=== PATIENT | male | born 1980 | race Caucasian/White ===

== ENCOUNTER 2016-05-30 06:03 | Day surgery (SDC) | payer BC ==
[~2016-05-30] VITALS: Ht 180.3 cm; Wt 127.0 kg
[~2016-05-30 06:03] MED LIST: AMOXICILLIN500 M1 PO
[2016-05-30 07:13] LABS: BASOPHILS 0.7 % (0.0-2.0); EOSINOPHILS 4.5 % (0-7); HEMATOCRIT 42.6 % (42.0-54.0); HEMOGLOBIN 14.5 g/dL (13.5-17.5); IMMATURE GRANULOCYTES 0.5 % (0-5); LYMPHOCYTES 32.7 % (15-50); MCH 32.7 pg (26.0-34.0); MCV 95.9 fL (80.0-100.0); MEAN PLATELET VOLUME 10.1 fL (7.4-10.4); MONOCYTES 9.3 % (2-11); NEUTROPHILS 52.3 % (40-80); PLATELET COUNT 211 10x3/uL (130-400); RBC 4.44 10x6/uL (4.20-6.10); RDW 12.8 % (11.5-14.5); WBC 7.5 10x3/uL (4.8-10.8)
[2016-05-30 07:31] LABS: CALC OSMOLALITY 284 mosm/kg (275-300); CALCIUM 8.8 mg/dL (8.5-10.1); CARBON DIOXIDE 26.7 mmol/L (21.0-32.0); CHLORIDE - SERUM 108 mmol/L (98-107); CREATININE - SERUM 0.9 mg/dL (0.6-1.3); GLUCOSE 99 mg/dL (74-106); POTASSIUM - SERUM 3.8 mmol/L (3.5-5.1); SODIUM 142 mmol/L (136-145); UREA NITROGEN 17 mg/dL (7-18); eGFR NON AFRICAN AMERICAN > 90 mL/min (90-120)
[2016-05-30 07:44] VITALS: BP 145/87; Ht 180.3 cm; Wt 127.0 kg
[2016-05-30] MEDS ORDERED: HYDROCODONE-APA1 TAB PO (10:35)
--- NOTE | 2016-05-30 14:47 | NUR ---
1415--IV DC'D, PT UP TO DRESS AT THIS TIME. ISSA MERRILL 1430--DISCHARGE INSTRUCTIONS GIVEN, PT VERBALIZES UNDERSTANDING. PT OFF UNIT VIA WC. ISSA MERRILL
--- NOTE | 2016-06-20 13:21 | OP ---
PATIENT NAME: BEAU HERNANDEZ MEDICAL RECORD: [id number] :76 LOCATION:[facility] ADMISSION DATE: SURGEON: EFRAIN PINK MD DATE OF OPERATION: 05/30/2016 PREOPERATIVE DIAGNOSES: 1. Ventral incisional hernia. 2. Tobacco dependence syndrome. 3. Morbid obesity. POSTOPERATIVE DIAGNOSES: 1. Ventral incisional hernia. 2. Tobacco dependence syndrome. 3. Morbid obesity. PROCEDURE: Ventral hernia repair with 6.4 cm Proceed mesh. SURGEON: Efrain Pink MD REPORT OF PROCEDURE: The patient's abdomen was prepped and draped in sterile fashion. A midline incision was made in the upper abdomen. Electrocautery was used to dissect through subcutaneous tissues and we encountered a hernia sac. The hernia sac was transected down at its base using electrocautery. The hernia sac had incarcerated omentum present within it. I could place my finger into the hernia defect and as I felt around there are another couple small defects with the largest one being just above this largest defect. I remove this small fascial bridge between these 2 and this made it more easily accessible for reduction of the hernia contents. Once the hernia contents were completely reduced, I could see that the hernia defect was about 2.5-3 cm in greatest diameter. The fascia was cleared off above and below. At this point, we placed a 6.4 cm Proceed mesh. This was sutured down on all 4 sides using interrupted 0 Prolenes. The fascia was closed in the midline using running #1 loop PDS times 2. There was good approximation of the tissue. Any bleeding was then treated with electrocautery. We reapproximated the subcutaneous tissues using interrupted 3-0 Vicryls and the skin was closed with running subcutaneous 5-0 Monocryl. A 10 mL of 0.25% Marcaine with epinephrine was infused into the surrounding tissues and the wound was dressed appropriately. COMPLICATIONS: None. CONDITION: Stable. ANESTHESIA: General endotracheal and local. BLOOD LOSS: 30 mL. TRANSINT:[id number] Voice Confirmation ID: [id number] DOCUMENT ID: [id number] OPERATIVE REPORT [id number] BEAU HERNANDEZ EFRAIN PINK MD at 1321 CC: CATE DANIELS MD [id number] DICTATION DATE: 05/30/16 1036 POUNCING MACHINE OPERATOR: 05/30/16 1727 [facility] 05/30/16 [place] [id number] [place] [id number]
== END 2016-05-30 14:49 | disposition home or self-care (01) ==
LOC: D.OPS 06:03 → D.PAN 12:45 → D.OPS 12:45
PROVIDERS: Surgery
DX: K43.0 Incisional hernia with obstruction, without gangrene (principal); F17.200 Nicotine dependence, unspecified, uncomplicated; E66.01 Morbid (severe) obesity due to excess calories; Z68.39 Body mass index [BMI] 39.0-39.9, adult

== ENCOUNTER → 2019-02-01 13:57 | Outpatient (CLI) | payer OTHER ==
[2016-05-30 07:44] VITALS: BMI 39.1
[~2019-02-01 13:57] MED LIST changes: +ALEVE220 MG PO; +HYDROCHLOROTH12.5 M1 PO; +HYDROCODON-ACE1 EAC2 PO; +HYDROCODONE-APA1 TAB PO; +KLONOPIN1 MG PO; +LISINOPRIL20 MG PO; +MOBIC7.5 MG PO; +WELLBUTRIN XL150 M1 PO
== END | disposition home or self-care (01) ==
LOC: D.MRI 13:57
PROVIDERS: ATTEND Orthopaedic Surgery
DX: M25.551 Pain in right hip (principal)

== ENCOUNTER → 2019-02-03 19:30 | Outpatient (CLI) | payer OTHER ==
[2016-05-30 07:44] VITALS: BMI 39.1
== END | disposition home or self-care (01) ==
LOC: D.LABREF 19:30
PROVIDERS: ATTEND Orthopaedic Surgery
DX: M87.88 Other osteonecrosis, other site (principal)

== ENCOUNTER 2019-02-10 12:07 | Inpatient (IN) | payer OTHER ==
[~2019-02-10] VITALS: Ht 180.3 cm; Wt 122.7 kg
[~2019-02-10 12:07] MED LIST changes: -ALEVE220 MG PO; -HYDROCHLOROTH12.5 M1 PO; -HYDROCODON-ACE1 EAC2 PO; -KLONOPIN1 MG PO; -LISINOPRIL20 MG PO; -MOBIC7.5 MG PO; -WELLBUTRIN XL150 M1 PO
[2019-02-22] MEDS ORDERED: LISINOPRIL20 MG PO (16:03)
[2019-02-22] MEDS ORDERED: HYDROCHLOROTH12.5 M1 PO (16:03)
[2019-02-22] MEDS ORDERED: MOBIC7.5 MG PO (16:04)
[2019-02-22] MEDS ORDERED: KLONOPIN1 MG PO (16:04)
[2019-02-22] MEDS ORDERED: ALEVE220 MG PO (16:04)
[2019-02-22] MEDS ORDERED: WELLBUTRIN XL150 M1 PO (16:04)
[2019-02-23 12:45] LABS: ANION GAP 13.4 mmol/L (8-16); CALCIUM 9.5 mg/dL (8.5-10.1); CARBON DIOXIDE 27.5 mmol/L (21.0-32.0); CREATININE - SERUM 1.2 mg/dL (0.6-1.3); POTASSIUM - SERUM 4.9 mmol/L (3.5-5.1)
[2019-02-23 12:46] LABS: APPEARANCE CLEAR (CLEAR); BILIRUBIN NEGATIVE (NEGATIVE); COLOR YELLOW (YELLOW); GLUCOSE NEGATIVE (NEGATIVE); KETONE NEGATIVE (NEGATIVE); NITRITE NEGATIVE (NEGATIVE); PROTEIN NEGATIVE (NEGATIVE); UROBILINOGEN NORMAL (NORMAL)
[2019-02-23 12:47] LABS: APTT 30.7 SECONDS (22.8-39.4); INR 1.09 (0.85-1.17); PROTIME 13.6 SECONDS (11.6-15.0)
[2019-02-23 13:00] LABS: HEMATOCRIT 40.3 % (42.0-54.0); HEMOGLOBIN 14.1 g/dL (13.5-17.5); LYMPHOCYTES 34.5 % (15-50); MCH 33.2 pg (26.0-34.0); MCV 94.8 fL (80.0-100.0); MEAN PLATELET VOLUME 9.9 fL (7.4-10.4); NEUTROPHILS 53.7 % (40-80); PLATELET COUNT 239 10x3/uL (130-400); RBC 4.25 10x6/uL (4.20-6.10); RDW 12.2 % (11.5-14.5); WBC 8.6 10x3/uL (4.8-10.8)
[2019-02-28] VITALS (12 sets, daily range): BP systolic 101–155; BP diastolic 40–89; BMI 37.7
[2019-02-28] MEDS ORDERED: HYDROCODON-ACE1 EAC2 PO (07:08)
--- NOTE | 2019-02-28 09:49 | NUR ---
PT PLACED ON LEFT SIFE WITH RIGHT HIP UP IN LATERAL POSITION ON FAN BAG. RIGHT LEG CLEANSED WITH HIBICLEANSE AND ALCOHOL FROM ILIAC CREST TO TOES CIRCUMFERENTIALLY AND DRIED WITH STERILE TOWEL. RIGHT LEG PREPPED WITH CHOLRAPREP X3 FROM ILIAC CREST TO TOES CIRCUMFERENTIALLY. TRAFFIC KEPT TO A MINIMUM PLASMA BLADE SET TO 6/8 GROUNDING PAD ON RIGHT FLANK LOT # [id number] 05-18-2020
--- NOTE | 2019-02-28 19:20 | NUR ---
ASSESSMENT COMPLETED EARLY AM.HE HAS BEEN WITHOUT DISTRESS.HOPES TO DC HOME IN AM.HE IS WITHOUT CHANGE.CONT PLAN OF CARE
--- NOTE | 2019-02-28 19:24 | NUR ---
ARRIVED ON UNIT TODAY POST OP RIGHT HIP. PAIN CONTROLLED WITH PO MEDS.HE IS WITHOUT DISTRESS.DRESSING TO RIGHT HIP CDI WITH ICE IN PLACE.REMAINS WITHOUT CHANGE.CONT PLAN OF CARE
--- NOTE | 2019-02-28 19:30 | NUR ---
PT IS SITTING UP IN BED VISITING WITH HIS MOM. ICE PACK PLACED TO RIGHT HIP. RIGHT HIP DRESSING IS C/D/I. PT REPORTS HIS PAIN 2/10 TO RIGHT HIP, TOLERABLE. DENIES NEEDS. CALL LIGHT WITHIN REACH. BED IN LOW POSITIONS.
[2019-03-01] VITALS: BP 103/56
[2019-03-01 04:00] VITALS: BP 123/57
[2019-03-01 06:27] LABS: HEMATOCRIT 35.6 % (42.0-54.0); HEMOGLOBIN 11.8 g/dL (13.5-17.5); MCH 31.8 pg (26.0-34.0); MCHC 33.1 g/dL (31.0-37.0); RBC 3.71 10x6/uL (4.20-6.10); RDW 12.2 % (11.5-14.5); WBC 10.4 10x3/uL (4.8-10.8)
[2019-03-01 09:52] VITALS: BP 110/50
--- NOTE | 2019-03-01 10:03 | OP ---
PATIENT NAME: BEAU HERNANDEZ MEDICAL RECORD: [id number] :76 LOCATION:[id number] ADMISSION DATE:02/28/19 SURGEON: SENIA CASTELAN MD DATE OF OPERATION: 02/28/2019 PREOPERATIVE DIAGNOSIS: Avascular necrosis of the right hip. POSTOPERATIVE DIAGNOSIS: Avascular necrosis of the right hip. PROCEDURE: Right total hip arthroplasty. SURGEON: Senia Castelan MD BUDGET EXAMINER: Osbaldo Araya. ANESTHESIA: General. INTRAOPERATIVE COMPLICATIONS: None. SUMMARY OF PATHOLOGIC FINDINGS: The patient had complete collapse of the right femoral head with complete deformation as well as a loose chondral fragments. IMPLANTS USED: Trident 2 cup with an Accolade II stem on a size 56 acetabular shell, size 36 Biolox ceramic head plus 0, size 6 Accolade II TMZF coated stem and a size 36 polyethylene insert, again that is a 56 acetabular component. ESTIMATED BLOOD LOSS: 200 cc. OPERATION IN DETAIL: After obtaining the appropriate preoperative orthopedic surgery surgery consent as well as anesthetic consultation, evaluation and clearance, the patient was brought to the operating room and placed on the operating table in supine position. After general laryngeal mask airway was administered, the patient was placed in left lateral decubitus position. All pressure points were well padded to include down leg peroneal pad as well as axillary roll. The patient was held firmly to the operating table using the vacuum pack suction system. Right lower extremity and hip were then prepped and draped in routine sterile fashion. Curvilinear incision was made over the greater trochanter, taken down along the IT band, which was split in line with fibers of the IT band to reveal gluteus medius minimus attachment. These were reflected anteriorly. The hip capsule was identified and split in a T-type fashion. Mild capsulotomy was performed. The hip was dislocated. Femoral neck cut was made using the femoral neck cutting guide. Having completed this, attention was turned to the acetabulum. Circumferential labrectomy was then followed by reaming to 55 for a size 56 cup that was tamped into place with excellent capture. Polyethylene was then put into place. Attention was turned to the proximal femur. Serial and sequential reaming and broaching were done for a size 6 TMZF stem. The TMZF stem was malleted into place with good fit and fill. Trial was undertaken. It was felt that the +0 standard was the most appropriate. This was tamped into place on the Mckenna taper. The hip was reduced. Intraoperative radiographs were taken and showed good position and placement of all components. Wound was then copiously irrigated and it was filled with a gram of vancomycin and a gram of tobramycin. Gluteus medius minimus was then reattached to the greater trochanter transosseous fashion using #5 Ethibond. The IT band was then closed with #2 Ethibond, #1 Vicryl, 2-0 Vicryl and skin rhys for final closure done by Osbaldo Araya. Having completed OPERATIVE REPORT [id number] BEAU HERNANDEZ this, sterile dressings were applied. The patient was awakened and taken to recovery room in stable condition. All final needle and sponge counts were correct. TRANSINT:[id number] Voice Confirmation ID: [id number] DOCUMENT ID: [id number] FLIP MCMAHON, SENIA MARTIN at 1003 CC: [id number] DICTATION DATE: 03/01/19901 INFRASTRUCTURE MANAGER: 03/01/19 0958 ADM IN [place] [id number] [place] [id number]
[2019-03-01 13:20] VITALS: Ht 180.3 cm; Wt 122.7 kg
[2019-03-01 16:45] VITALS: BP 129/66
--- NOTE | 2019-03-01 18:45 | NUR ---
PATIENT ASSISTED TO BR. NO PROBLEMS AT THIS TIME. WAS UPSET BECAUSE HE STATED THE PT FOR TODAY DIDNT DO WHAT HE WAS SUPPOSE TO DO WITH HIM TODAY. EXPLAINED TO PATIENT I WOULD NOTIFY NM ABOUT PT. VERBALIZED UNDERSTANDING. NO QUESTIONS AT THIS TIME. IV INTACT. DRESSING INTACT. BSCDS ON. CALL LIGHT WITHIN REACH.
[2019-03-01 20:00] VITALS: BP 130/67
[2019-03-02 04:00] VITALS: BP 147/78
[2019-03-02 04:44] LABS: HEMATOCRIT 34.8 % (42.0-54.0); HEMOGLOBIN 11.4 g/dL (13.5-17.5); MCH 31.5 pg (26.0-34.0); MCHC 32.8 g/dL (31.0-37.0); MCV 96.1 fL (80.0-100.0); MEAN PLATELET VOLUME 10.4 fL (7.4-10.4); RBC 3.62 10x6/uL (4.20-6.10); RDW 12.2 % (11.5-14.5); WBC 11.3 10x3/uL (4.8-10.8)
--- NOTE | 2019-03-02 08:00 | NUR ---
PATIENT IN BED WITH IV INTACT. NO COMPLAINTS OR SIGNS OF DISTRESS. DRESSING TO HIP CDI. CALL LIGHT WITHIN REACH.
[2019-03-02 09:48] VITALS: BP 131/71
--- NOTE | 2019-03-02 11:49 | MORECARE ---
CASE MANAGEMENT DISCHARGE SUMMARY PATIENT: BEAU HERNANDEZ UNIT: [id number] ADM DATE: 02/28/19 AGE: 38 : [birth year] SEX: M ROOM/BED: D.2209 AUTHOR: MAANDA AVILES PHYSICIAN: REFERRING PHYSICIAN: SENIA CASTELAN MD DATE OF SERVICE: 03/02/19 Discharge Plan Patient Name: BEAU HERNANDEZ [facility] [facility] 1980 Planned Disposition: Home or Self Care Anticipated Discharge Date: Discharge Date: Expected LOS: Initial Reviewer: [email or web address] Initial Review Date: 02/28/2019 Generated: 03/02/19 12:48 pm DCPIA - Discharge Planning Initial Assessment Updated by [email or web address]: Kristyn Mcclellan on 03/02/19 11:47 am * Is the patient Alert and Oriented? Yes * How many steps to enter\exit or inside your home? 7/ * PCP JEREMIAH * Pharm[facility] * Preadmission Environment Home with Family * ADLs Independent * Equipment Bedside Commode Walker * List name and contact numbers for known caregivers / representatives who currently or will assist patient after discharge: DEANDRA (MOTHER) [phone] * Verbal permission to speak to the caregivers and representatives has been obtained from the patient. N/A * Community resources currently utilized None * Additional services required to return to the preadmission environment? Yes * Can the patient safely return to the preadmission environment? Yes * Has this patient been hospitalized within the prior 30 days at any hospital? No Patient Name: BEAU HERNANDEZ Page 12835 at 1149 All edits/amendments must be made on the electronic document DICTATION DATE: 03/02/19 114 THREAD GRINDER: CHANDLER 03/02/19 1148 RPT#: [id number] DC DATE: STATUS: ADM IN [facility] [address] [place] [address] END OF REPORT
--- NOTE | 2019-03-02 11:57 | MORECARE ---
CASE MANAGEMENT DISCHARGE SUMMARY PATIENT: BEAU HERNANDEZ UNIT: [id number] ADM DATE: 02/28/19 AGE: 38 : 76 SEX: M ROOM/BED: D.2209 AUTHOR: AMANDA AVILES PHYSICIAN: REFERRING PHYSICIAN: SENIA CASTELAN MD DATE OF SERVICE: 03/02/19 Discharge Plan Patient Name: BEAU HERNANDEZ Facility: [facility]:[place] : 1980 Planned Disposition: Home or Self Care Anticipated Discharge Date: Discharge Date: Expected LOS: Initial Reviewer: [email or web address] Initial Review Date: 02/28/2019 Generated: 03/02/19 12:57 pm Comments DCP- Discharge Planning Updated by [email or web address]: Kristyn Mcclellan on 03/02/19 10:[address] Patient Name: BEAU HERNANDEZ Admission Status: Elective Accout number: [id number] Admission Date: 02-28-2019 : 1980 Admission Diagnosis: Attending: SENIA CASTELAN Current LOS: 2 Anticipated DC Date: Planned Disposition: Home or Self Care Primary Insurance: [employer] MA[employer]ED [employer]ICA[employer] Discharge Planning Comments: CM met with patient to complete initial dc planning assessment. CM educated patient on the CM role and verbal consent given by patient to complete assessment. Patient lives at home where he is independent with his care. At discharge patient plans to go to his mothers home in [place] and feels this is a safe discharge. CM discussed availability of home health, rehab services, and medical equipment. He would like to use [facility] at [place], I called and spoke with Patricia. His appointment has been made for Thursday03/04/19 @ 2:30. Patient has a walker and his BSC will be delivered when he is discharged. The DME was set up by Dr Castelan's office prior to surgery. Patient denied known discharge needs at this time. CM will continue to follow and will assist as needed with dc plans/needs. Concrete Mason: Kristyn Mcclellan DCPIA - Discharge Planning Initial Assessment Updated by [email or web address]: Kristyn Mcclellan on 03/02/19 11:47 am * Is the patient Alert and Oriented? Yes * How many steps to enter\exit or inside your home? 09/25 * PCP JEREMIAH * Pharmacy [facility] [address] * Preadmission Environment Home with Family * ADLs Independent * Equipment Bedside Commode Walker * List name and contact numbers for known caregivers / representatives who currently or will assist patient after discharge: DEANDRA (MOTHER) [phone] * Verbal permission to speak to the caregivers and representatives has been obtained from the patient. N/A * Community resources currently utilized None * Additional services required to return to the preadmission environment? Yes * Can the patient safely return to the preadmission environment? Yes * Has this patient been hospitalized within the prior 30 days at any hospital? No Last DP export: 03/02/19 10:49 Patient Name: BEAU HERNANDEZ Page 73899 at 1157 All edits/amendments must be made on the electronic document DICTATION DATE: 03/02/191156 TUBE SIZER OPERATOR: CHANDLER 03/02/191156 RPT#: [id number] DC DATE: STATUS: ADM IN [facility] [address] [place] [address] END OF REPORT
--- NOTE | 2019-03-02 12:00 | NUR ---
PATIENT SITTING UP IN CHAIR WITH NO COMPLAINTS. DID WELL AMBULATING WITH PT THIS AM. IV INTACT. CALL LIGHT WITHIN REACH.
--- NOTE | 2019-03-02 12:27 | MORECARE ---
CASE MANAGEMENT DISCHARGE SUMMARY PATIENT: BEAU HERNANDEZ UNIT: [id number] ADM DATE: 02/28/19 AGE: 38 : 76 SEX: M ROOM/BED: D.2209 AUTHOR: AMANDA AVILES PHYSICIAN: REFERRING PHYSICIAN: SENIA CASTELAN MD DATE OF SERVICE: 03/02/19 Discharge Plan Patient Name: BEAU HERNANDEZ Facility: [facility]:[place] : 1980 Planned Disposition: Home or Self Care Anticipated Discharge Date: Discharge Date: Expected LOS: Initial Reviewer: [email or web address] Initial Review Date: 02/28/2019 Generated: 03/02/19 1:26 pm Comments DCP- Discharge Planning Updated by [email or web address]: Kristyn Mcclellan on 03/02/19 10:[address] Patient Name: BEAU HERNANDEZ Admission Status: Elective Accout number: [id number] Admission Date: 02-28-2019 : 1980 Admission Diagnosis: Attending: SENIA CASTELAN Current LOS: 2 Anticipated DC Date: Planned Disposition: Home or Self Care Primary Insurance: [employer] Discharge Planning Comments: CM met with patient to complete initial dc planning assessment. CM educated patient on the CM role and verbal consent given by patient to complete assessment. Patient lives at home where he is independent with his care. At discharge patient plans to go to his mothers home in [place] and feels this is a safe discharge. CM discussed availability of home health, rehab services, and medical equipment. He would like to use [facility] at [place], I called and spoke with Patricia. His appointment has been made for Thursday03/04/19 @ 2:30. Patient has a walker and his BSC will be delivered when he is discharged. The DME was set up by Dr Castelan's office prior to surgery. Patient denied known discharge needs at this time. CM will continue to follow and will assist as needed with dc plans/needs. Radar Air Traffic Controller: Kristyn Mcclellan DCPIA - Discharge Planning Initial Assessment Updated by [email or web address]: Kristyn Mcclellan on 03/02/19 11:47 am * Is the patient Alert and Oriented? Yes * How many steps to enter\exit or inside your home? 09/25 * PCP JEREMIAH * Pharmacy [facility] [address] * Preadmission Environment Home with Family * ADLs Independent * Equipment Bedside Commode Walker * List name and contact numbers for known caregivers / representatives who currently or will assist patient after discharge: DEANDRA (MOTHER) [phone] * Verbal permission to speak to the caregivers and representatives has been obtained from the patient. N/A * Community resources currently utilized None * Additional services required to return to the preadmission environment? Yes * Can the patient safely return to the preadmission environment? Yes * Has this patient been hospitalized within the prior 30 days at any hospital? No External Providers External Provider: [facility] Next Contact Date: Service Request Date: Service Type: Resolution: Reviewer: Comments: Last DP export: 03/02/19 10:57 Patient Name: BEAU HERNANDEZ Page 00068 at 1227 All edits/amendments must be made on the electronic document DICTATION DATE: 03/02/19 1226 ENGINEER AUTOMATED EQUIPMENT: CHANDLER 03/02/19 1226 RPT#: [id number] DC DATE: STATUS: ADM IN [facility] [address] [place] [address] END OF REPORT
[2019-03-02 13:23] VITALS: BP 127/69
--- NOTE | 2019-03-02 15:47 | NUR ---
PATIENT IN BED WITH IV INTACT. NO COMPLAINTS. EYES CLOSED RESTING QUIETLY. CALL LIGHT WITHIN REACH. BSCDS ON. CALL LIGHT WITHIN REACH.
[2019-03-02 16:59] VITALS: BP 118/65
--- NOTE | 2019-03-02 19:18 | NUR ---
UP IN BED WITH TELEVISION ON, ABLE TO VOICE ALL NEEDS. DENIES ANY PAIN OR ACUTE DISTRESS AT THIS TIME. WILL NOTE ANY CHANGE.
[2019-03-02 21:19] VITALS: BP 127/55
[2019-03-03 01:43] VITALS: BP 121/58
--- NOTE | 2019-03-03 05:03 | NUR ---
I have reviewed this patient and I concur with the Shift Assessment completed by the Licensed Practical Nurse today this shift.
--- NOTE | 2019-03-03 07:05 | NUR ---
ALERT AND ORIENTED, RESTING IN BED WITH EYES OPEN. NO C/O PAIN. NO S/S OF ACUTE DISTRESS NOTED. POD#3 RIGHT HIP, DRESSING C/D/I. UP WITH WALKER. IV TO LEFT HAND, SL. SITE PATENT WITHOUT REDNESS OR SWELLING. DENIES ANY NEEDS AT THIS TIME. CALL LIGHT IN REACH. WILL CONTINUE TO MONITOR.
[2019-03-03 08:40] VITALS: BP 144/60
[2019-03-03] MEDS ORDERED: ELIQUIS2.5 MG PO (09:00)
[2019-03-03] MEDS ORDERED: PERCOCET 10-321 EAC1 PO (09:01)
--- NOTE | 2019-03-03 10:05 | MORECARE ---
CASE MANAGEMENT DISCHARGE SUMMARY PATIENT: BEAU HERNANDEZ UNIT: [id number] ADM DATE: 02/28/19 AGE: 38 : 76 SEX: M ROOM/BED: D.2209 AUTHOR: AMANDA AVILES PHYSICIAN: REFERRING PHYSICIAN: SENIA CASTELAN MD DATE OF SERVICE: 03/03/19 Discharge Plan Patient Name: BEAU HERNANDEZ Facility: [facility]:[place] : 1980 Planned Disposition: Home or Self Care Anticipated Discharge Date: Discharge Date: Expected LOS: Initial Reviewer: [email or web address] Initial Review Date: 02/28/2019 Generated: 03/03/19 11:05 am Comments DCP- Discharge Planning Updated by [email or web address]: Kristyn Mcclellan on 03/03/19 9:[address] PATIENT DISCHARGING HOME TODAY, HS OP PT APPT WILL BE IN HIS DC PACKET CM TO FOLLOW NEEDED DCP- Discharge Planning Updated by [email or web address]: Kristyn Mcclellan on 03/02/19 10:[address] Patient Name: BEAU HERNANDEZ Admission Status: Elective Accout number: [id number] Admission Date: 02-28-2019 : 1980 Admission Diagnosis: Attending: SENIA CASTELAN Current LOS: 2 Anticipated DC Date: Planned Disposition: Home or Self Care Primary Insurance: [facility] MANAGED MEDICAID Discharge Planning Comments: CM met with patient to complete initial dc planning assessment. CM educated patient on the CM role and verbal consent given by patient to complete assessment. Patient lives at home where he is independent with his care. At discharge patient plans to go to his mothers home in [place] and feels this is a safe discharge. CM discussed availability of home health, rehab services, and medical equipment. He would like to use [facility] at [place], I called and spoke with Patricia. His appointment has been made for Thursday03/04/19 @ 2:30. Patient has a walker and his BSC will be delivered when he is discharged. The DME was set up by Dr Castelan's office prior to surgery. Patient denied known discharge needs at this time. CM will continue to follow and will assist as needed with dc plans/needs. Client Service Associate: Kristyn Mcclellan DCPIA - Discharge Planning Initial Assessment Updated by [email or web address]: Kristyn Mcclellan on 03/02/19 11:47 am * Is the patient Alert and Oriented? Yes * How many steps to enter\exit or inside your home? 09/25 * PCP JEREMIAH * Pharmacy [facility] [address] * Preadmission Environment Home with Family * ADLs Independent * Equipment Bedside Commode Walker * List name and contact numbers for known caregivers / representatives who currently or will assist patient after discharge: DEANDRA (MOTHER) [phone] * Verbal permission to speak to the caregivers and representatives has been obtained from the patient. N/A * Community resources currently utilized None * Additional services required to return to the preadmission environment? Yes * Can the patient safely return to the preadmission environment? Yes * Has this patient been hospitalized within the prior 30 days at any hospital? No Last DP export: 03/02/19 11:27 Patient Name: BEAU HERNANDEZ Page 93071 at 1005 All edits/amendments must be made on the electronic document DICTATION DATE: 03/03/19 1004 BAKER TEST: CHANDLER 03/03/19 1004 RPT#: [id number] MS DATE: STATUS: ADM IN [facility] [address] [place] [address] END OF REPORT
--- NOTE | 2019-03-03 11:19 | NUR ---
I have reviewed this patient and I concur with the Shift Assessment completed by the Licensed Practical Nurse today this shift.
--- NOTE | 2019-03-03 12:32 | NUR ---
DISCHARGED PATIENT HOME VIA WHEELCHAIR WITH FAMILY, ACCOMPANIED BY HOSPITAL STAFF. DISCONTINUED IV, CATHETER TIP INTACT. WENT OVER DISCHARGE INSTRUCTIONS WITH PATIENT, VERBALIZED UNDERSTANDING. REMOVED OLD DRESSING TO RIGHT HIP. PLACE AQUACEL TO RIGHT HIP, SENT EXTRA DRESSING HOME WITH PATIENT. DENIES ANYTHING FURTHER.
[2019-03-03 14:09] LABS: LUPUS - INTERPRETATION Comment: (()); LUPUS - THROMBIN TIME 15.2 sec (0.0-23.0); PTT-LA 38.1 sec (0.0-51.9)
[2019-03-04 21:06] LABS: FACTOR II DNA ANALYSIS Negative (())
== END 2019-03-03 12:34 | disposition home or self-care (01) | DRG 470 ==
LOC: D.SDCHOLD 02-23 10:00 → D.MS 02-28 06:39 → D.SDCHOLD 02-28 08:30 → D.MS 02-28 11:20 → D.SDCHOLD 02-28 18:00 → D.MS 03-03 12:34
PROVIDERS: Internal Medicine Hematology & Oncology; ADMIT Orthopaedic Surgery; ATTEND Orthopaedic Surgery
PROC: 0SR90J9 Replacement of Right Hip Joint with Synthetic Substitute, Cemented, Open Approach (ICD-10-PCS; principal; 2019-02-28 08:30)
DX: M87.851 Other osteonecrosis, right femur (principal); I10 Essential (primary) hypertension; G62.9 Polyneuropathy, unspecified; M87.852 Other osteonecrosis, left femur; J45.909 Unspecified asthma, uncomplicated; G47.30 Sleep apnea, unspecified; E66.9 Obesity, unspecified; Z68.37 Body mass index [BMI] 37.0-37.9, adult

== ENCOUNTER → 2019-12-02 12:56 | Outpatient (CLI) | payer OTHER ==
[2019-03-01 13:20] VITALS: BMI 37.7
[~2019-12-02 12:56] MED LIST changes: +ALEVE220 MG PO; +ELIQUIS2.5 MG PO; +HYDROCHLOROTH12.5 M1 PO; +HYDROCODON-ACE1 EAC2 PO; +KLONOPIN1 MG PO; +LISINOPRIL20 MG PO; +MOBIC7.5 MG PO; +PERCOCET 10-321 EAC1 PO; +WELLBUTRIN XL150 M1 PO
== END | disposition home or self-care (01) ==
LOC: D.MRI 12:56
PROVIDERS: ATTEND Orthopaedic Surgery
DX: M54.16 Radiculopathy, lumbar region (principal)